=== PATIENT | male | born 1995 | race Caucasian/White ===

== ENCOUNTER 2019-10-20 10:48 | Emergency (ER) | payer OTHER ==
[~2019-10-20] VITALS: Ht 170.2 cm; Wt 80.9 kg
[~2019-10-20 10:48] MED LIST: OXYC-141 PO; PERC5TAB12 PO; TOPI50TA9 PO; [UNRECOGNIZED DRUG - CODE] TOP
[2019-10-20 10:56] VITALS: BP 129/68
[2019-10-20] MEDS ORDERED: VITATAB74 PO (11:00)
[2019-10-20] MEDS ORDERED: DERMABOND TOPICAL SKIN ADHESIVE TOP ONE (11:15)
[2019-10-20] MEDS ORDERED: ADACEL/BOOSTRIX VACCINE (DIPHTH/PERTUSS/ACELL/TETANUS)0.5ML SYR (90715) IM ONE (11:15)
== END 2019-10-20 12:01 | disposition home or self-care (01) ==
LOC: M ED 10:48 → EDBD 10:48 → M ED 12:01
DX: S81.012A Laceration without foreign body, left knee, initial encounter (principal); W26.0XXA Contact with knife, initial encounter; Y92.89 Other specified places as the place of occurrence of the external cause; Y99.0 Civilian activity done for income or pay; Z91.018 Allergy to other foods

== ENCOUNTER 2022-05-05 08:56 | Emergency (ER) | payer OTHER ==
[~2022-05-05] VITALS: Ht 170.2 cm; Wt 84.2 kg
[~2022-05-05 08:56] MED LIST changes: +VITATAB74 PO
[2022-05-05] MEDS ORDERED: ROSU5TAB5 PO (09:03)
[2022-05-05 11:38] LABS: BASO % 0.2 % (0.0-1.0); HEMATOCRIT 42.8 % (42.0-52.0); HEMOGLOBIN 14.7 g/dl (13.5-17.5); LYMPH # 0.8 10^3/uL (1.5-5.0); MEAN CORPUSCULAR HEMOGLOBIN 30.2 pg (27.0-33.0); MEAN CORPUSCULAR HGB CONC 34.3 g/dl (32.0-36.5); MEAN CORPUSCULAR VOLUME 87.9 fl (80.0-96.0); MONO # 0.5 10^3/uL (0.0-0.8); MONO % 4.4 % (2.0-8.0); NEUTROPHILS # 10.7 10^3/uL (1.5-8.5); NEUTROPHILS % 88.2 % (36.0-66.0); PLATELET COUNT, AUTOMATED 230 10^3/uL (150-450); RED BLOOD COUNT 4.87 10^6/uL (4.30-6.10); WHITE BLOOD COUNT 12.1 10^3/uL (4.0-10.0)
[2022-05-05 12:07] LABS: RBC, URINE 30-40 /hpf (0-3); SQUAMOUS EPITHELIAL CELL URINE SMALL AMOUNT /hpf (SMALL AMT)
[2022-05-05 12:08] LABS: BACTERIA, URINE NONE SEEN; HYALINE CAST, URINE NONE SEEN /lpf (0-1); MUCUS, URINE MOD AMOUNT (NEGATIVE)
[2022-05-05 12:20] LABS: ALBUMIN 4.3 GM/DL (3.2-5.2); ALT/SGPT 23 U/L (12-78); BILIRUBIN,DIRECT 0.1 MG/DL (0.0-0.2); BILIRUBIN,TOTAL 0.5 MG/DL (0.2-1.0); BLOOD UREA NITROGEN 12 MG/DL (7-18); CALCIUM LEVEL 9.5 MG/DL (8.5-10.1); CARBON DIOXIDE LEVEL 23 MEQ/L (21-32); CHLORIDE LEVEL 111 MEQ/L (98-107); GLOMERULAR FILTRATION RATE > 60.0 (>60); GLUCOSE, FASTING 106 MG/DL (70-100); LIPASE 252 U/L (73-393); POTASSIUM SERUM 4.1 MEQ/L (3.5-5.1); SODIUM LEVEL 141 MEQ/L (136-145); TOTAL PROTEIN 7.8 GM/DL (6.4-8.2)
[2022-05-05] MEDS ORDERED: TAMSULOSIN 0.4 MG CAP PO ONE (12:55)
[2022-05-05] MEDS ORDERED: KETOROLAC TROMETHAMINE 10 MG TAB PO ONE (12:55)
[2022-05-05] MEDS ORDERED: KETO10TAB PO (12:56)
[2022-05-05] MEDS ORDERED: FLOM0.4C39 PO (12:56)
[2022-05-05 13:06] VITALS: BP 130/75
== END 2022-05-05 13:12 | disposition home or self-care (01) ==
LOC: M ED 08:56
DX: N20.1 Calculus of ureter (principal); E78.5 Hyperlipidemia, unspecified; G43.909 Migraine, unspecified, not intractable, without status migrainosus; Z91.018 Allergy to other foods

== ENCOUNTER 2022-05-13 11:23 | Emergency (ER) | payer OTHER ==
[~2022-05-13] VITALS: Ht 170.2 cm; Wt 84.1 kg
[~2022-05-13 11:23] MED LIST changes: +FLOM0.4C39 PO; +KETO10TAB PO; +ROSU5TAB5 PO
[2022-05-13 11:24] VITALS: BP 125/73
[2022-05-13 14:08] LABS: BASO % 0.2 % (0.0-1.0); EOS % 0.5 % (0.0-3.0); HEMATOCRIT 45.1 % (42.0-52.0); HEMOGLOBIN 15.5 g/dl (13.5-17.5); LYMPH # 1.6 10^3/uL (1.5-5.0); LYMPH % 19.3 % (24.0-44.0); MEAN CORPUSCULAR HEMOGLOBIN 30.4 pg (27.0-33.0); MEAN CORPUSCULAR HGB CONC 34.4 g/dl (32.0-36.5); MEAN CORPUSCULAR VOLUME 88.4 fl (80.0-96.0); MONO # 0.8 10^3/uL (0.0-0.8); NEUTROPHILS # 5.9 10^3/uL (1.5-8.5); NEUTROPHILS % 70.6 % (36.0-66.0); PLATELET COUNT, AUTOMATED 263 10^3/uL (150-450); WHITE BLOOD COUNT 8.3 10^3/uL (4.0-10.0)
[2022-05-13 14:42] LABS: BLOOD UREA NITROGEN 15 MG/DL (7-18); CALCIUM LEVEL 9.9 MG/DL (8.5-10.1); CARBON DIOXIDE LEVEL 25 MEQ/L (21-32); CHLORIDE LEVEL 106 MEQ/L (98-107); CREATININE FOR GFR 0.77 MG/DL (0.70-1.30); GLOMERULAR FILTRATION RATE > 60.0 (>60); GLUCOSE, FASTING 90 MG/DL (70-100); POTASSIUM SERUM 4.1 MEQ/L (3.5-5.1); SODIUM LEVEL 135 MEQ/L (136-145)
== END 2022-05-13 15:35 | disposition home or self-care (01) ==
LOC: M ED 11:23
DX: R31.9 Hematuria, unspecified (principal); E78.5 Hyperlipidemia, unspecified; G43.909 Migraine, unspecified, not intractable, without status migrainosus; Z87.442 Personal history of urinary calculi; Z91.018 Allergy to other foods; Z79.899 Other long term (current) drug therapy

== ENCOUNTER 2024-10-31 14:45 | Emergency (ER) | payer OTHER ==
[~2024-10-31] VITALS: Ht 170.2 cm; Wt 87.9 kg
[~2024-10-31 14:45] MED LIST changes: +ROSU5TAB49 PO; -ROSU5TAB5 PO; +TOPI-21 PO; -TOPI50TA9 PO
[2024-10-31 17:44] VITALS: BP 123/68; TEMP 97.9; O2SAT 97
== END 2024-10-31 18:41 | disposition left against medical advice (07) ==
LOC: M ED 14:45
DX: Z53.21 Procedure and treatment not carried out due to patient leaving prior to being seen by health care provider (principal)

== ENCOUNTER 2024-11-17 10:10 | Day surgery (SDC) | payer OTHER ==
[~2024-11-17] VITALS: Ht 170.2 cm; Wt 88.0 kg
[~2024-11-17 10:10] MED LIST changes: +FAMO40TA3 PO; +OMEP40CA4 PO
[2024-11-17] MEDS ORDERED: propofoL 200 MG/20 ML VIAL As Ordered ONE (11:18)
[2024-11-17] MEDS ORDERED: LIDOCAINE 2% 100MG/5ML SDV (FOR ANES.) As Ordered ONE (11:18)
[2024-11-17 11:45] VITALS: BP 95/65; TEMP 97.6; O2SAT 97
== END 2024-11-17 11:52 | disposition home or self-care (01) ==
LOC: M OPP 10:10
PROVIDERS: ATTEND Surgery
DX: R13.10 Dysphagia, unspecified (principal); G47.30 Sleep apnea, unspecified; Z91.018 Allergy to other foods; Z79.899 Other long term (current) drug therapy

== ENCOUNTER 2025-07-15 11:59 | Emergency (ER) | payer OTHER ==
[~2025-07-15] VITALS: Ht 170.2 cm; Wt 75.7 kg
[~2025-07-15 11:59] MED LIST changes: -FLOM0.4C39 PO; +TAMS-18 PO
[2025-07-15] MEDS ORDERED: ROSU40TA81 PO (12:34)
[2025-07-15] MEDS ORDERED: BUPR150T12 PO (12:34)
[2025-07-15 15:25] VITALS: BP 122/72; TEMP 98.6; O2SAT 98
== END 2025-07-15 15:26 | disposition home or self-care (01) ==
LOC: EDBD 11:59 → M ED 11:59
DX: R42 Dizziness and giddiness (principal); E78.5 Hyperlipidemia, unspecified; G43.909 Migraine, unspecified, not intractable, without status migrainosus; F17.200 Nicotine dependence, unspecified, uncomplicated; F12.10 Cannabis abuse, uncomplicated; Z79.899 Other long term (current) drug therapy; Z91.018 Allergy to other foods